=== PATIENT | male | born 1985 | race Asian ===

== ENCOUNTER 2022-08-18 14:16 | Emergency (ER) | payer MEDICAID, OTHER ==
[~2022-08-18] VITALS: Ht 167.6 cm; Wt 65.9 kg
[2022-08-18] MEDS ORDERED: CEPH500C PO (16:50)
[2022-08-18 20:31] VITALS: BP 127/81
== END 2022-08-18 17:50 | disposition home or self-care (01) ==
LOC: ER 14:16
DX: L02.511 Cutaneous abscess of right hand (principal)
CPT/HCPCS: 26010